=== PATIENT | female | born 1960 | race African-American/Black ===

== ENCOUNTER 2016-07-16 08:15 | Emergency (ER) | payer OTHER ==
[~2016-07-16] VITALS: Wt 68.0 kg
[2016-07-16] MEDS ORDERED: IPRATROPIUM (NEB) 0.5 MG/2.5 ML AMP HHN ONE (09:00)
[2016-07-16] MEDS ORDERED: ALBUTEROL 0.083% (NEB) 2.5 MG/3 ML AMP HHN ONE (09:00)
--- NOTE | 2016-07-16 09:22 | RADRPT ---
PROCEDURE: XR Chest PA CLINICAL INDICATION: Cough TECHNIQUE: An PA radiograph of the chest was submitted. COMPARISON: None. FINDINGS: Cardiovascular: The cardiovascular silhouette appears normal. Lung Mina: The lung mina appear clear with no nodule, alveolar infiltrate, for a interstitial pr ominence evident. Pleural Spaces: There is no pneumothorax or pleural fluid accumulation evident. Osseous Structures: The osseous structures appear intact. Soft Tissues: The soft tissues appear unremarkable. IMPRESSION: Unremarkable PA chest. Physician Bacilio Date Time Electronically viewed and signed by Donaldo Hu Physician on 07/16/2016 09:22 /
[2016-07-16] MEDS ORDERED: PRED20TA PO (09:27)
[2016-07-16] MEDS ORDERED: AZIT250T94 PO (09:27)
[2016-07-16] MEDS ORDERED: ALBU8.5H3 INH (09:27)
--- NOTE | 2016-07-16 13:32 | ERD ---
DATE OF SERVICE: HISTORY OF PRESENT ILLNESS: The patient is a 56-year-old female coming in complaining of a persiste nt cough for the last 2 weeks. The patient states that she took Robitussin with no alleviation. Sh janis has noticed that she started wheezing. She has not had a history of asthma in the past. Denies a ny fevers. Has occasional shortness of breath. Has not used any other medications aside from Robit ussin. MEDICAL HISTORY: HIV positive, controlled, hypertension. ALLERGIES TO MEDICATIONS: Denies. PAST SURGICAL HISTORY: Denies SOCIAL HISTORY: Denies. REVIEW OF SYSTEMS: A 12-point review of systems was done. Refer to HPI for positives, all other sy stems negative. PHYSICAL EXAMINATION VITAL SIGNS: Temperature is 97.1, pulse 77, blood pressure is 161/82, respiratory 18, O2 saturation 100% on room air. Pain intensity is 0/10. GENERAL: The patient is well-appearing, well-nourished, no acute distress. HEENT: Atraumatic. Conjunctivae are pink. Pupils equal, round, and reactive to light. There is no s cleral icterus. Tympanic membranes clear bilaterally. Oropharynx clear. No nystagmus or photophobia . CHEST: There is questionable rhonchi heard in the right lung field with no retractions, no audible stridor, no trismus or drooling HEART: Regular rate and rhythm. No murmurs, clicks, rubs or gallops. No S3 or S4. ABDOMEN: Soft, nontender and nondistended. Good bowel sounds. No rebound or guarding. No gross pauline tonitis. No gross organomegaly or masses. No Block sign or McBurney point tenderness. SKIN: There is no apparent rash or petechia. The skin is warm and dry. EMERGENCY ROOM COURSE: The patient underwent a 1-view chest x-ray done in the ER which showed unrem arkable x-ray. The patient also had a breathing treatment with albuterol and Atrovent. DIAGNOSIS: Bronchitis with wheezing. MEDICAL DECISION MAKING: The patient did have concerning findings on auscultation, so I will treat with antibiotics prophylactically. A low suspicion for pneumonia, low suspicion for tuberculosis, l ow suspicion for pertussis, low suspicion for respiratory distress or hypoxia. The patient's vital signs are stable. The patient is nontoxic appearing. DISCHARGE: The patient is discharged stable. Patient given prescription for prednisone and azithro mycin and albuterol and told to follow up with primary care within 1 to 2 days for reevaluation. Th e patient was told if symptoms progress or worsen to return to the ER. All other questions answered at time of discharge. Discharge summary given at the time of departure. Patient understood and co mplied with plan. Dictated By: SANKET MELO PA for GIANNI WILLINGHAM/COMPA Conf#: [id number] DID#: [id number]
== END 2016-07-16 09:28 | disposition home or self-care (01) ==
LOC: FTE 08:15
DX: J20.9 Acute bronchitis, unspecified (principal); R06.2 Wheezing; I10 Essential (primary) hypertension
CPT/HCPCS: 71010; 94664